=== PATIENT | male | born 1975 | race Caucasian/White ===

== ENCOUNTER 2022-11-20 08:17 | Emergency (ER) | payer MEDICAID, SELFPAY ==
[2022-11-20] VITALS (9 sets, daily range): BP systolic 137–159; BP diastolic 88–106; PULSE 107; RESP 18; TEMP 36.9; O2SAT 97–100
--- NOTE | 2022-11-20 08:18 | ECG_ITS ---
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 Measurements Intervals [place] Rate: 69 P: 17 MO: 135 QRS: 49 QRSD: 80 T: 51 QT: 351 QTc: 378 Interpretive Statements SINUS RHYTHM Diffuse ST changes, suggesting early repolarization No previous ECG available for comparison Electronically Signed On 11-21-2022 0:04:28 FREIGHT MANAGER by Jessy Trujillo M.D. [id number]
--- NOTE | 2022-11-20 08:31 | W.ED.GENADLT ---
HPI - General Adult General: Chief complaint: General Medical Stated complaint: High Blood Sugar Time Seen by Provider: 11/20/22 08:18 Source: patient Mode of arrival: EMS History of Present Illness: 47-year-old male presents to the emergency room with complaints of elevated blood sugar. Patient states he was feeling well this morning he checked a blood sugar on him and the reported blood sugar in the 460 range on arrival here review blood sugar confirms. He has not recently been on any steroids has not had any recent illness. [facility] He does not use methamphetamines for several days. No known history of diabetes he says his father is diabetic. He has not had any recent polyphagia polydipsia or polyuria. Onset (ago): hour(s) Relieving factors: none Exacerbating factors: none Associated symptoms: Reports malaise; Deny chest pain, confusion, cough, diaphoresis, decreased appetite, dyspnea, fevers/chills, headache(s), nausea, rash, palpitations, seizures, short of breath, syncope or vomiting Treatments prior to arrival: none Review of Systems Const: Reports: fatigue and malaise; Denies: fever(s), chills or diaphoresis ENMT: Denies: throat pain, ear or mastoid pain, nasal discharge or nasal congestion Card: Denies: chest pain, palpitations or syncope Resp: Denies: dyspnea GI: Denies: abdominal pain, nausea or vomiting : Denies: flank pain, dysuria, urinary frequency or urinary urgency Skin/Breast: Denies: rash or pruritus Neuro: Denies: headache(s) or confusion PFS ED PFSH: Medical History (Updated 11/28/22 @ 00:06 by JAXON Lee) No significant past medical history Surgical History (Updated 11/20/22 @ 08:49 by Lazaro Vasquez DO) No pertinent past surgical history Family History (Updated 11/20/22 @ 08:49 by Lazaro Vasquez DO) Father Diabetes Social History (Updated 11/20/22 @ 08:50 by Lazaro Vasquez DO) Smoking and tobacco status: current every day smoker Substance/Drug Use: former Physical Exam Const: GENERAL APPEARANCE: cooperative and comfortable ORIENTATION/CONSCIOUSNESS: Yes awake, Yes oriented to person, Yes oriented to place and Yes oriented to time HENMT: COMMON NORMALS: normocephalic, atraumatic and hearing grossly normal bilaterally HEAD & SCALP: normocephalic and atraumatic Resp: COMMON NORMALS: normal respiratory effort, No retractions, No use of accessory muscles and clear to auscultation bilaterally AUSCULTATION: clear to auscultation bilaterally Cardio: COMMON NORMALS: regular rate, regular rhythm and No murmurs present (Cardio) RATE: regular rate RHYTHM: regular rhythm GI: COMMON NORMALS: Soft to palpation and No hepatosplenomegaly present AUSCULTATION: Yes normoactive bowel sounds PALPATION: Yes Soft to palpation, No Tenderness to palpation present (GI), No Guarding due to palpation present (GI) and Yes No hepatosplenomegaly present Extremity: COMMON NORMALS: normal to inspection, capillary refill normal, no clubbing, cyanosis or edema, no calf tenderness and no pedal edema Neuro: SENSORIUM/ORIENTATION: Yes oriented to person, Yes oriented to place and Yes oriented to time Skin: COMMON NORMALS: no rashes or lesions noted GENERAL SKIN EXAM: no rashes or lesions noted Course Vital Signs: Vital signs: Vital Signs Temperature 98.4 F 11/20/22 08:17 Pulse Rate 107 H 11/20/22 08:17 Respiratory Rate 18 11/20/22 08:17 Blood Pressure 137/96 11/20/22 11:45 Pulse Oximetry 100 11/20/22 11:45 Oxygen Delivery Me thod 11/20/22 08:17 MDM - General Adult Medical Decision Making Patient presents with elevated blood sugars. He responded well to treatments in the emergency room he was evaluated for DKA and infection there were no signs of any major infection or DKA at this point appears to be just poorly controlled diabetes mellitus. Cost is a concern form we will discharge him home with Jankaran VERNON we have checked with the pharmacy to participating in the 340 B program this is a very cost effective option. He is encouraged to follow-up and establish with a primary care for long-term management of his diabetes mellitus. He did have some pseudohyponatremia as sodium corrected very well for his glucose. Medical Records I reviewed the patient's medical records. Lab Data I reviewed the patient's lab results. 11/20/22 08:42 11/20/22 08:42 Laboratory Results WBC 6.1 10^3/uL (4.0-10.0) 11/20/22 08:42 RBC 4.71 10^6/uL (4.1-5.3) 11/20/22 08:42 Hgb 14.1 g/dL (11.7-16.6) 11/20/22 08:42 Hct 42.6 % (42.0-52.0) 11/20/22 08:42 MCV 90.4 fl (80-94) 11/20/22 08:42 MCH 29.9 pg (28.0-34.0) 11/20/22 08:42 MCHC 33.1 g/dL (30.0-36.0) 11/20/22 08:42 RDW 12.1 % (12.1-15.1) 11/20/22 08:42 Plt Count 233 10^3/cmm (130-400) 11/20/22 08:42 MPV 10.4 fL (7.4-10.4) 11/20/22 08:42 Neut % (Auto) 55.8 % 11/20/22 08:42 Lymph % (Auto) 31.0 % 11/20/22 08:42 [place] % (Auto) 8.2 % 11/20/22 08:42 Eos % (Auto) 3.6 % 11/20/22 08:42 Baso % (Auto) 1.1 % 11/20/22 08:42 Neut # (Auto) 3.41 10^3/uL (1.8-7.7) 11/20/22 08:42 Lymph # (Auto) 1.9 10^3/uL (0.8-4.8) 11/20/22 08:42 [place] # (Auto) 0.5 10^3/uL (0.2-0.9) 11/20/22 08:42 Eos # (Auto) 0.2 10^3/uL (0.0-0.8) 11/20/22 08:42 Baso # (Auto) 0.1 10^3/uL (0.0-0.1) 11/20/22 08:42 Nucleated RBC % (auto) 0 % 11/20/22 08:42 Nucleated RBCs # 0.0 /100WBC 11/20/22 08:42 Sodium 130 mmol/L (136-145) L 11/20/22 08:42 Potassium 4.6 mmol/L (3.5-5.1) 11/20/22 08:42 Chloride 98 mmol/L (98-107) 11/20/22 08:42 Carbon Dioxide 23 mmol/L (22-29) 11/20/22 08:42 Anion Gap 13.6 (5-19) 11/20/22 08:42 BUN 11 mg/dL (6-20) 11/20/22 08:42 Creatinine 0.7 mg/dL (0.7-1.2) 11/20/22 08:42 GFR Calculation 119.9 mL/min (90-130) 11/20/22 08:42 Glucose 515 mg/dL (65-115) H* 11/20/22 08:42 POC Glucose 173 mg/dL (70-110) H 11/20/22 11:19 Calculated Osmolality 293 mOsm/kg (285-295) 11/20/22 08:42 Calcium 8.3 mg/dL (8.5-10.5) L 11/20/22 08:42 Serum Ketones Negative (Negative) 11/20/22 08:42 Discharge Plan Discharge Patient Disposition: Home Clinical Impression: Diabetes mellitus Condition: Stable Prescriptions: New Janumet XR 50-500 mg tablet, ER multiphase 24 hr 1 tab PO DAILY Qty: 30 0RF Discharge Orders: Discharge ED (Routine); Ordered 11/20/22 Ordered By: Lazaro Vasquez Discharge Diet: Diabetic Discharge Activity: Increase activity as tolerated Patient Instructions: Diabetes and Diet, Opioid Safety, Pain Management Activity Restrictions/Additional Instructions: You are seen today for elevated blood sugar. Your blood sugar responded well to insulin and fluids. Recommend that you start Janumet Exar 50/500 once daily. The medication should be available inexpensively through the 340 B program at the [facility] pharmacy [facility] or [facility]. You should follow-up established with a primary care doctor who can follow and adjust medicines to control your diabetes. Recommend a diabetic diet as included in your discharge instructions Coding Level of Care Code ED Rounding Machine Tender for Chg Alexa
[2022-11-20 09:08] LABS: Basophils # 0.1 10^3/uL (0.0-0.1); Basophils % 1.1 %; Eosinophils # 0.2 10^3/uL (0.0-0.8); Eosinophils % 3.6 %; Hematocrit 42.6 % (42.0-52.0); Hemoglobin 14.1 g/dL (11.7-16.6); Lymphocytes # 1.9 10^3/uL (0.8-4.8); Mean Corpuscular HGB Conc 33.1 g/dL (30.0-36.0); Mean Corpuscular Hemoglobin 29.9 pg (28.0-34.0); Mean Corpuscular Volume 90.4 fl (80-94); Mean Platelet Volume 10.4 fL (7.4-10.4); Monocytes # 0.5 10^3/uL (0.2-0.9); Monocytes % 8.2 %; Neutrophils # 3.41 10^3/uL (1.8-7.7); Neutrophils % 55.8 %; Nucleated Red Blood Cells % 0 %; Platelet Count 233 10^3/cmm (130-400); Red Blood Count 4.71 10^6/uL (4.1-5.3); Red Cell Distribution Width 12.1 % (12.1-15.1); White Blood Count 6.1 10^3/uL (4.0-10.0)
[2022-11-20 09:12] LABS: Ketone (Acetest) Serum Negative (Negative)
[2022-11-20 09:15] LABS: Anion Gap 13.6 (5-19); Blood Urea Nitrogen 11 mg/dL (6-20); Calcium 8.3 mg/dL (8.5-10.5); Carbon Dioxide 23 mmol/L (22-29); Chloride 98 mmol/L (98-107); Glomerular Filtration Rate 119.9 mL/min (90-130); Osmolality Calculated 293 mOsm/kg (285-295); Potassium 4.6 mmol/L (3.5-5.1); Sodium 130 mmol/L (136-145)
[2022-11-20] MEDS: insulin regular-human 100 units/1 mL 5 UNIT IVP (09:16)
[2022-11-20 09:22] LABS: Glucose 515 mg/dL (65-115)
[2022-11-20 09:41] LABS: Glucose Point of Care 493 mg/dL (70-110)
[2022-11-20] MEDS: sodium chloride 0.9% 1,000 ML 999 ML IV (10:11)
[2022-11-20 10:20] LABS: Glucose Point of Care 210 mg/dL (70-110)
[2022-11-20 11:22] LABS: Glucose Point of Care 173 mg/dL (70-110)
--- NOTE | 2022-11-20 11:50 | PC.NURSE ---
PER PT REQUEST TURNING LEAF NOTIFIED OF PT NEED FOR A RIDE HOME AND NEED FOR A PERSCRIPTION TO BE FILLED.
== END 2022-11-20 11:51 | disposition home or self-care (01) ==
PROVIDERS: Emergency Provider Family Medicine
DX: E11.9 Type 2 diabetes mellitus without complications (principal); F17.210 Nicotine dependence, cigarettes, uncomplicated
CPT/HCPCS: 36416; 80048; 82009; 82962; 85025; 93005; 96374; 99284; J1815; J7030